=== PATIENT | male | born 1955 | race Caucasian/White ===

== ENCOUNTER → 2023-12-06 15:08 | Outpatient (REF) | payer MEDICARE, BC, SELFPAY | LOC: DHCBS HW 15:08 | PROVIDERS: ATTENDING PHYSICIAN Internal Medicine Cardiovascular Disease; FAMILY PHYSICIAN Family Medicine | DX: I48.0 Paroxysmal atrial fibrillation (principal) | CPT/HCPCS: 93306 ==

== ENCOUNTER → 2024-02-20 14:10 | Outpatient (REF) | payer MEDICARE, BC, SELFPAY | LOC: HWRAD 14:10 | PROVIDERS: ATTENDING PHYSICIAN Family Medicine | DX: R10.31 Right lower quadrant pain (principal); R59.0 Localized enlarged lymph nodes | CPT/HCPCS: 73502; 76882 ==

== ENCOUNTER → 2024-02-28 10:41 | Outpatient (REF) | payer MEDICARE, BC, SELFPAY | LOC: HWRAD 10:41 | PROVIDERS: ATTENDING PHYSICIAN Family Medicine; REFERRING PHYSICIAN Surgery | DX: R10.31 Right lower quadrant pain (principal); K45.8 Other specified abdominal hernia without obstruction or gangrene | CPT/HCPCS: 74177; Q9967 ==

== ENCOUNTER → 2024-06-25 10:54 | Outpatient (REF) | payer MEDICARE, BC, SELFPAY | LOC: DHCBC/DCA 10:54 | PROVIDERS: ATTENDING PHYSICIAN Physician Assistant Medical; FAMILY PHYSICIAN Family Medicine | DX: R06.09 Other forms of dyspnea (principal) | CPT/HCPCS: 78452; 93017; A9500; J2785 ==

== ENCOUNTER 2024-08-20 09:48 | Emergency (ER) | payer MEDICARE, BC, SELFPAY ==
[2024-08-20 09:53] VITALS: BP 168/96; BMI 28.7
[2024-08-20 10:00] VITALS: BP 165/95
[2024-08-20 10:11] LABS: % Basophils 0.5 % (0-2); % Eosinophils 0.9 % (0-6); % Lymphocytes 8.5 % (20.5-51.1); % Monocytes 7.2 % (1.7-9.3); % Neutrophils 81.9 % (42.2-75.2); Absolute Basophils 0.1 10^3/uL (0-0.2); Absolute Eosinophils 0.1 10^3/uL (0-0.7); Absolute Immature Granulocytes 0.1 10^3/uL (0-0.05); Absolute Monocytes 0.9 10^3/uL (0.1-0.6); Absolute Neutrophils 10.1 10^3/uL (1.4-6.5); Hematocrit 45.5 % (39.0-52.0); Hemoglobin 16.3 g/dL (13.0-18.0); Mean Corp Hgb Conc. 35.8 g/dL (33.0-37.0); Mean Corpuscular Hgb 32.7 pg (27.0-31.0); Mean Corpuscular Volume 91.4 fL (80.0-94.0); Nucleated Red Blood Cells % 0 % (-); Platelet Count 269 10^3/uL (130-400); Red Blood Cell Count 4.98 10^6/uL (4.70-6.10); Red Cell Dist. Width 12.6 % (11.5-14.5); White Blood Cell Count 12.3 10^3/uL (4.8-10.8)
[2024-08-20 10:25] LABS: ALT (SGPT) 52 U/L (0-50); AST (SGOT) 51 U/L (17-59); Albumin 4.7 g/dl (3.5-5.0); Alkaline Phosphatase 61 U/L (38-126); Blood Urea Nitrogen 18 mg/dl (9-20); Calcium 9.8 mg/dl (8.4-10.2); Carbon Dioxide 25 mmol/L (22-30); Chloride 99 mmol/L (98-107); Estimated Creatinine Clearance 94 ml/min; Glucose 156 mg/dl (70-99); Lipase 62 U/L (23-300); Potassium 3.5 mmol/L (3.5-5.1); Sodium 139 mmol/L (135-145); Total Bilirubin 0.6 mg/dl (0.2-1.3); Total Protein 7.3 g/dl (6.3-8.2); eGFR > 60.00
--- NOTE | 2024-08-20 10:48 | ED.GENMED ---
History of Present Illness
General
Chief Complaint: Abdominal Symptoms
Time Seen by Provider: 08/20/24 10:08
History of Present Illness
History of Present Illness:
68-year-old male with history of hypertension and atrial fibrillation presents to the emergency department for evaluation of nausea beginning last night. He is approximate 3-month status post lumbar spine surgery performed at [facility],
states that he has had intermittent back pain since that time and took gabapentin and naproxen last night due to increased pain. The pain did improve however he reports nausea developing this morning. Denies any vomiting, primarily dry
heaves. He also reports achiness in the thighs when ambulating has been ongoing since his initial spine surgery approximately 3 years ago. Denies any loss of bladder or bowel function. No fevers or chills
Past History
Past History
ED Past Medical History: HTN, Hypercholesterolemia and Other (chronic pain right groin)
ED Past Surgical History: Tonsilectomy and Other (Thyroidectomy)
Social History
Tobacco: Non-smoker
Alcohol: Occasional
Drug: None
Personal: Single
Living: alone
Review of Systems
Review of Systems
Allergies reviewed?: Yes
All Other Systems: ROS reviewed and negative except as documented in HPI and ROS
Phy Exam
Physical Exam
Physical Exam:
GEN: Well appearing, NAD, WDWN
Eyes: PERRLA, EOMs intact, no scleral icterus
HENT: NCAT, oral mucosa moist
Lungs: CTAB, no wheezes, rales, rhonchi, normal chest wall excursion
Cardiac: RRR, no M/R/G, no peripheral edema. Radial pulses 2+ bilat
Abdomen: S, NT, ND, NABS, no masses or hepatosplenomegaly
Neuro: AO x 3
MSK: No gross deformity or ecchymosis. No edema. No digital clubbing. Bilateral lower extremity strength 5 out of 5 in all peng, patellar reflexes 2+ bilaterally
Skin: No rashes, petechiae. Normal color, no pallor or jaundice.
Psych: Calm, cooperative, proper hygiene
Course
Orders/Labs/Results
Orders:
Orders
08/20/24 09:59
Complete Blood Count/With Diff Urgent
Comprehensive Metabolic Panel Urgent
Lipase Urgent
08/20/24 10:48
Ondansetron Injectable [Zofran] 4 mg IV NOW STA
08/20/24 11:22
Urinalysis Reflex To Culture Urgent
Date Specimen was Collected: 08/20/24
Time Specimen was Collected: 11:21
08/20/24 12:18
CT Abd/Pel (IV only)-DH only Urgent
Comment:
Reason For Exam: R flank pain, nausea
08/20/24 13:42
Metoclopramide [Reglan] 10 mg IV NOW STA
Abnormal Lab Results
08/20/24 08/20/24
09:59 11:22
WBC 12.3 H 10^3/uL
(4.8-10.8)
MCH 32.7 H pg
(27.0-31.0)
Abs Immat Gran (auto) 0.1 H 10^3/uL
(0-0.05)
Absolute Neuts (auto) 10.1 H 10^3/uL
(1.4-6.5)
Absolute Lymphs (auto) 1.0 L 10^3/uL
(1.2-3.4)
Absolute Monos (auto) 0.9 H 10^3/uL
(0.1-0.6)
Immature Gran % 1.0 H %
(0-0.5)
Neutrophils % 81.9 H %
(42.2-75.2)
Lymphocytes % 8.5 L %
(20.5-51.1)
Glucose 156 H mg/dl
(70-99)
ALT 52 H U/L
(0-50)
Urine Ketones Trace A
(Negative)
08/20/24 09:59
08/20/24 09:59
Vital Signs
Initial and Last Documented VS:
Initial Vital Signs
Temp Pulse Resp BP Pulse Ox
97.9 F 56 18 168/96 95
08/20/24 09:53 08/20/24 09:53 08/20/24 09:53 08/20/24 09:53 08/20/24 09:53
Last Documented Vital Signs
Temp Pulse Resp BP Pulse Ox
97.9 F 61 13 139/84 95
08/20/24 09:53 08/20/24 13:49 08/20/24 13:49 08/20/24 12:00 08/20/24 09:53
MDM/Problems Addressed
MDM/Problems Addressed:
Because the patient's nausea is unclear, certainly could be due to take medications for pain. I do not have any clinical concern for postsurgical spine infection, he has no focal neurologic deficits in the lower extremities. Additionally
his lab workup is otherwise unremarkable. Imaging was obtained due to the patient's insistence that he felt abnormal but this was grossly unremarkable for acute process. In regards to his leg achiness has been ongoing for many years after surgery
and is likely a neuropathic issue due to spine surgery. Recommend he continue to follow-up with his primary care physician as well as a spine surgeon
*Critical Care Note
Total Time (30-74mins, 75-104mins- exclusive of procedures): Not Applicable
ED Attending Note
-
Portions of this chart may have been created with voice recognition software.� Occasional wrong word or��sound alike� substitutions may have occurred due to the inherent limitations of voice recognition software.
Discharge Plan
Departure
Patient Disposition: Home (Routine Discharge)
Date of Disposition: 08/20/24
Time of Disposition: 14:15
Patient with high blood pressure during this ER visit?: No
Discharge Problem:
Nausea, Acute right flank pain
Instructions: Nausea and Vomiting, Adult ED
Prescriptions:
New
ondansetron 4 mg tablet,disintegrating
4 mg PO TIDPRN PRN (Reason: nausea/vomiting) Qty: 10 0RF
No Action
lisinopril 10 MG tablet
10 mg PO QPM
finasteride 5 MG tablet
5 mg PO DAILY
atorvastatin 20 MG tablet
20 mg PO DAILY
chlorthalidone 25 mg Tablet
25 mg PO DAILY
triamcinolone acetonide 0.1 % Cream
1 applic TOPICAL BID
Patient Comments:
09/15/23 patient applies cream to the right forearm
levothyroxine 112 mcg Tablet
112 mcg PO DAILY
cholecalciferol (vitamin D3) [Vitamin D3] 50 mcg (2,000 unit) Tablet
50 mcg PO DAILY
Testosterone Cream cream
1 applic topical DAILY
Patient Comments:
09/15/23 patient applies cream to both arms, both legs and chest.
Patient gets medication filled @ [facility] in [place]
metoprolol tartrate 25 mg tablet
25 mg PO BID Qty: 60 0RF
Eliquis 5 mg tablet
5 mg PO BID Qty: 60 0RF
Referrals:
Grey White, [Family Provider] -
Activity Restrictions/Additional Instructions:
Follow up with your spine surgeon if leg symptoms continue
Interventions
Interventions:
*Risk Screen - Suicide Last Done: 08/20/24 09:53
*General Assessment Last Done: 08/20/24 09:53
*Neglect/Abuse Screening Last Done: 08/20/24 09:53
ED- Fall Risk Assessment Last Done: 08/20/24 09:53
*ED COVID-19 Vaccine History Last Done: 08/20/24 09:53
*Nursing Disposition Last Done: 08/20/24 14:30
GF-Sdvudf-Fznwtslgmu Assessment Last Done: 08/20/24 09:53
Discharge Date and Time
Discharge Date/Time: 08/20/24 14:31
Print Language: UPPER SORBIAN
[2024-08-20] MEDS: ZOFRAN 4 MG IV (10:56)
[2024-08-20 11:00] VITALS: BP 139/94
[2024-08-20 11:43] LABS: Urine Albumin Negative (Neg - Trace); Urine Bilirubin Negative (Negative); Urine Character Clear (Clear); Urine Color Yellow; Urine Glucose Negative (Negative); Urine Ketone Trace (Negative); Urine Leukocyte Negative (Negative); Urine Nitrite Negative (Negative); Urine Occult Blood Negative (Negative); Urine Specific Gravity 1.025 (<1.030); Urine Urobilinogen Negative (Neg - 1+)
[2024-08-20 12:00] VITALS: BP 139/84
[2024-08-20] MEDS: REGLAN 10 MG IV (13:48)
== END 2024-08-20 14:31 | disposition home or self-care (01) ==
LOC: EMR 09:48
PROVIDERS: Physician Assistant; EMERGENCY PHYSICIAN Emergency Medicine; FAMILY PHYSICIAN Family Medicine
DX: R10.9 Unspecified abdominal pain (principal); R11.0 Nausea
CPT/HCPCS: 99285; 96374; 96375; 74177; 80053; 81003; 83690; 85025; Q9967

== ENCOUNTER → 2024-09-06 12:00 | Outpatient (REF) | payer MEDICARE, BC, SELFPAY | LOC: DHSLP 12:00 | PROVIDERS: ATTENDING PHYSICIAN Family Medicine; FAMILY PHYSICIAN Internal Medicine Cardiovascular Disease | DX: G47.33 Obstructive sleep apnea (adult) (pediatric) (principal) | CPT/HCPCS: 95800 ==

== ENCOUNTER → 2024-09-14 13:16 | Outpatient (REF) | payer MEDICARE, BC, SELFPAY | LOC: RAD 13:16 | PROVIDERS: ATTENDING PHYSICIAN Family Medicine; OTHER PHYSICIAN Orthopaedic Surgery Orthopaedic Surgery of the Spine | DX: M79.604 Pain in right leg (principal); M79.605 Pain in left leg; R06.02 Shortness of breath | CPT/HCPCS: 71046; 93970 ==

== ENCOUNTER → 2024-10-12 06:56 | Outpatient (REF) | payer MEDICARE, BC, SELFPAY | LOC: PAVMRI 06:56 | PROVIDERS: ATTENDING PHYSICIAN Orthopaedic Surgery Orthopaedic Surgery of the Spine; FAMILY PHYSICIAN Family Medicine | DX: M48.061 Spinal stenosis, lumbar region without neurogenic claudication (principal) | CPT/HCPCS: 72148 ==

== ENCOUNTER 2025-06-19 18:41 | Emergency (ER) | payer MEDICARE, BC, SELFPAY ==
[2025-06-19 18:43] VITALS: BP 109/94
[2025-06-19 19:20] VITALS: BMI 27.4
--- NOTE | 2025-06-19 19:43 | ED.GENMED ---
History of Present Illness
General
Chief Complaint: Foreign Body Ingestion
Source: patient
Exam Limitations: none
Time Seen by Provider: 06/19/25 19:10
Nursing documentation reviewed up to this point in time: agreed with
History of Present Illness
History of Present Illness:
69 yo male hx hypothyroid, HTN, was eating take out eggplant parmesan when he felt something sharp in left side of his throat, reached in and pulled out a piece of wire. He feels something there and is afraid there is some stuck in his throat. He is
able to speak and swallow well.
Past History
Past History
ED Past Medical History: HTN, Hypercholesterolemia and Other
ED Past Surgical History: Tonsilectomy and Other (Thyroidectomy)
Social History
Tobacco: Non-smoker
Alcohol: Occasional
Drug: None
Personal: Single
Living: alone
Review of Systems
Review of Systems
Allergies reviewed?: Yes
All Other Systems: ROS reviewed and negative except as documented in HPI and ROS
EENT: Reports other (FB sensation throat)
Respiratory: Denies cough or trouble breathing
Phy Exam
Physical Exam
Physical Exam:
GENERAL: No acute distress. A&Ox3.
CONSTITUTIONAL: Afebrile.
ENMT: moist mucus membranes, Pharynx nl, Speaking and swallowing well
RESPIRATORY: Regular respirations, nonlabored, lungs clear.
CARDIOVASCULAR: Regular rate and rhythm, no murmurs, no rubs.
GI: Soft, nontender, normal BS
MUSCULOSKELETAL: Moves with ease. Well perfused.
SKIN: Warm, dry, pink
PSYCH: Normal mood and affect. Well kept, interactive and appropriate
NEUROLOGIC: Awake, alert and oriented. No focal neurological deficits
Course
Orders/Labs/Results
Orders:
Orders
06/19/25 19:11
CR Soft Tissue Neck Urgent
Comment:
Reason For Exam: poss small piece wire ingested
Vital Signs
Initial and Last Documented VS:
Initial Vital Signs
Temp Pulse Resp BP Pulse Ox
98.2 F 89 16 109/94 100
06/19/25 18:43 06/19/25 18:43 06/19/25 18:43 06/19/25 18:43 06/19/25 18:43
Last Documented Vital Signs
Temp Pulse Resp BP Pulse Ox
98.2 F 89 18 109/94 96
06/19/25 18:43 06/19/25 18:43 06/19/25 20:03 06/19/25 18:43 06/19/25 20:03
MDM/Problems Addressed
MDM/Problems Addressed:
69 yo male hx hypothyroid, HTN, was eating take out eggplant parmesan when he felt something sharp in left side of his throat, reached in and pulled out a piece of wire. He feels something there and is afraid there is some stuck in his throat. He is
able to speak and swallow well.
*Pulse Oximetry
SaO2: 100
Oxygen Mode of Delivery: Room air
Patient hypoxic: not evaluated
*Critical Care Note
Total Time (30-74mins, 75-104mins- exclusive of procedures): Not Applicable
ED Attending Note
-
Portions of this chart may have been created with voice recognition software.� Occasional wrong word or��sound alike� substitutions may have occurred due to the inherent limitations of voice recognition software.
Discharge Plan
Departure
Patient Disposition: Home (Routine Discharge)
Date of Disposition: 06/19/25
Time of Disposition: 19:52
Patient with high blood pressure during this ER visit?: No
Condition: Good
Discharge Problem:
Foreign body sensation in throat
Prescriptions:
No Action
finasteride 5 MG tablet
5 mg PO DAILY
atorvastatin 20 MG tablet
20 mg PO DAILY
chlorthalidone 25 mg Tablet
25 mg PO DAILY
triamcinolone acetonide 0.1 % Cream
1 applic TOPICAL BID
Patient Comments:
09/15/23 patient applies cream to the right forearm
cholecalciferol (vitamin D3) [Vitamin D3] 50 mcg (2,000 unit) Tablet
100 mcg PO DAILY
Testosterone Cream cream
1 applic topical Q48H
Patient Comments:
09/15/23 patient applies cream to both arms, both legs and chest.
Patient gets medication filled @ [facility] in [place]
Eliquis 5 mg tablet
5 mg PO BID Qty: 60 0RF
famotidine 40 mg Tablet
40 mg PO HS
omeprazole 40 mg Capsule,Delayed Release(Dr/Ec)
40 mg PO DAILY
benazepril 40 mg Tablet
40 mg PO DAILY
metoprolol tartrate 25 mg tablet
25 mg PO PRN PRN (Reason: HTN)
Rx Instructions:
pt unable to provide the details about the PRN parameters;
levothyroxine [Synthroid] 125 mcg Tablet
125 mcg PO DAILY
Referrals:
Grey White DO [Family Provider, Family Practice]
Activity Restrictions/Additional Instructions:
As we discussed, there is nothing in your throat on the xray.
You may have a small area of soft tissue swelling from a scrape from the wire that stuck you in the throat.
Sucking on ice may help reduce the swelling. The feeling should be completely gone within 2-3 days or sooner
Interventions
Interventions:
*Risk Screen - Suicide Last Done: 06/19/25 18:43
*Neglect/Abuse Screening Last Done: 06/19/25 18:43
*ED COVID-19 Vaccine History Last Done: 06/19/25 20:03
*Nursing Disposition Last Done: 06/19/25 20:03
JJ-Rvyyuw-Fncecqynim Assessment Last Done: 06/19/25 19:20
ED-EENT Assessment Last Done: 06/19/25 19:20
ED- Pulmonary Assessment Last Done: 06/19/25 19:20
Discharge Date and Time
Discharge Date/Time: 06/19/25 20:04
Print Language: GREENLANDIC
== END 2025-06-19 20:04 | disposition home or self-care (01) ==
LOC: EMR 18:41
PROVIDERS: EMERGENCY PHYSICIAN Emergency Medicine; FAMILY PHYSICIAN Family Medicine
DX: R09.A2 Foreign body sensation, throat (principal); I10 Essential (primary) hypertension; E78.00 Pure hypercholesterolemia, unspecified; E89.0 Postprocedural hypothyroidism
CPT/HCPCS: 99283; 70360

== ENCOUNTER → 2025-06-26 13:17 | Outpatient (REF) | payer MEDICARE, BC, SELFPAY | LOC: HWRAD 13:17 | PROVIDERS: ATTENDING PHYSICIAN Otolaryngology; FAMILY PHYSICIAN Family Medicine | DX: J32.0 Chronic maxillary sinusitis (principal); J31.0 Chronic rhinitis | CPT/HCPCS: 70486 ==

== ENCOUNTER → 2025-08-06 11:58 | Outpatient (REF) | payer MEDICARE, BC, SELFPAY | LOC: HWRAD 11:58 | PROVIDERS: ATTENDING PHYSICIAN Family Medicine | DX: R05.2 Subacute cough (principal) | CPT/HCPCS: 71046 ==